=== PATIENT | male | born 1960 | race Hispanic/Latino ===

== ENCOUNTER 2019-03-30 09:19 | Day surgery (SDC) | payer OTHER ==
[~2019-03-30 09:19] MED LIST: NACL 0.9% 1000 ML 1,000 ML IV SCH; WATER FOR IRRIG STERILE IR ONE
[2019-03-30] MEDS ORDERED: XYLOCAINE 2% INFILTRATI ONE (09:31)
[2019-03-30] MEDS ORDERED: DIPRIVAN 10 MG/ML IV ONE ×3 (09:31→10:46)
--- NOTE | 2019-03-30 09:51 | Anesthesia Consultation ---
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
--- NOTE | 2019-03-30 09:52 | Anesthesia Day of Surgery ---
Anesthesia Day of Surgery - Day of Surgery Patient Examined: Yes Patient H&P Reviewed: Yes Patient is NPO: Yes
--- NOTE | 2019-03-30 11:12 | Procedure Note ---
Date of procedure: 03/30/19 Pre-op diagnosis: Dysphagia/ Colon Polyp Screening Post-op diagnosis: other (Benign,Esophageal Stenosis/ Moderate, Erosive Esophagitis/Gastric Erosion/Gastritis/Extensive, Diverticular Disease/ No colon Polyps noted/ Minor,Internal Hemorrhoids) Anesthesia: MAC Surgeon: DALTON CASTRO Estimated blood loss: minimal Pathology: list Specimen disposition: to lab Condition: stable Disposition: same day (Treat with PPI and encourage fiber intake. Follow up in 1 to 2 weeks ([id number]). Avoid aspirin and NSAID for 5 days.)
[2019-03-30 11:37] VITALS: BP 127/85
--- NOTE | 2019-03-30 15:42 | Operative Report ---
PROCEDURE: Esophagogastroduodenoscopy with biopsy and balloon dilation. INDICATIONS: This is a 58-year-old white male with an underlying history of hypertension who has been having severe GERD symptoms and lately has been having dysphagia. EGD was done to assess for any esophageal stenosis and to do esophageal dilation if needed. DESCRIPTION OF PROCEDURE: The procedure was done after getting informed consent with MAC anesthesia. Instrument was passed through the hypopharynx into the esophagus, which showed moderate distal erosive esophagitis and benign esophageal stenosis. This was dilated with a 20-mm balloon at the end of the procedure, which was maintained for a minute. The stomach showed antral gastric erosion and gastritis. Biopsy was done from the gastric antrum, the gastric body, and the angularis incisura to rule out for H. pylori and atrophic gastritis. The pylorus is patent. The duodenum in the first and second portion appeared normal. There was minimal bleeding from the biopsy sites and no complications associated with the procedure. ASSESSMENT: Dysphagia, benign esophageal stenosis, status post balloon dilation with a 20-mm balloon, moderate erosive esophagitis, gastric erosion, gastritis. PLAN: Plan is to treat the patient with PPI. Have the patient avoid aspirin and aspirin-related products for the next few days. Have the patient to follow up in the office in 1-2 weeks' time. Further adjustments of the treatment will be made according to the biopsy findings. The procedure was done in the GI Lab with the assistance of anesthesia and the GI lab team which included Zoe JUNE, and Jose woodard. The patient is also to have a colonoscopy done as part of colon polyp screening given her prior history of colon polyps. JOB# [id number] ALF/RODNEY
--- NOTE | 2019-03-30 15:45 | Operative Report ---
PROCEDURE: Colonoscopy. INDICATIONS: This is a 48-year-old white male who has underlying history of hypertension and also has a family history of cancer, past history of prostate cancer, and skin cancer. He has lately had an EGD done as well as dilation for dysphagia and GERD symptoms. He was noted to have a benign esophageal stenosis and moderate distal erosive esophagitis as well as gastric erosion. Colonoscopy was done as part of colon polyp screening. DESCRIPTION OF PROCEDURE: Procedure was done after getting informed consent with MAC anesthesia. He said to have had a history of anal warts but does not appear to have any at the moment. Initial rectal exam was unremarkable. Instrument was passed through the rectum onto the cecum, which was identified by the ileocecal valve and the appendiceal orifice. Visualization was fair to good. The scope was retroflexed in the cecum for a more complete view and after withdrawal to the hepatic flexure was reintroduced. There was scattered diverticula. There was noted to be extensive involving the proximal transverse as well as the descending colon and the sigmoid colon. There was no evidence of any polyps, colitis, or diverticular disease and the rectum showed some minor internal hemorrhoids on the retroverted view. ASSESSMENT: Colon polyp screening, no colon polyps noted. Extensive diverticular disease, minor internal hemorrhoids. There was no bleeding associated with the procedure. No complications associated with the colonoscopy. The patient will be encouraged to take fiber supplements. Followup in the office in 1-2 weeks' time. He will be asked to avoid aspirin and aspirin-related products because of the upper GI findings. EGD of esophagitis, gastritis, which involved biopsies. The patient will be treated with PPI because of the esophagitis, gastritis. Encouraged to take fiber supplements and follow up in the office in 1-2 weeks' time. The procedure was done with the assistance of anesthesia and the GI lab team which included Zoe JUNE, as well as Jose woodard. JOB# [id number] ALF/RODNEY
== END 2019-03-30 09:20 | disposition home or self-care (01) ==
LOC: GIO 09:19
DX: Z12.11 Encounter for screening for malignant neoplasm of colon (principal); K22.2 Esophageal obstruction; K29.40 Chronic atrophic gastritis without bleeding; K64.8 Other hemorrhoids; K57.30 Diverticulosis of large intestine without perforation or abscess without bleeding; K21.0 Gastro-esophageal reflux disease with esophagitis; I10 Essential (primary) hypertension; G47.30 Sleep apnea, unspecified; Z85.46 Personal history of malignant neoplasm of prostate; Z85.828 Personal history of other malignant neoplasm of skin; Z98.890 Other specified postprocedural states; Z79.899 Other long term (current) drug therapy; Z87.891 Personal history of nicotine dependence
CPT/HCPCS: 43239; 43249; 45378; 88305; 88342; C1726; J2704; J7030